=== PATIENT | male | born 1945 | race Caucasian/White ===

== ENCOUNTER → 2018-06-21 | Outpatient (CLI) | payer OTHER, BC | LOC: FIMAGING 06:44 | DX: H53.9 Unspecified visual disturbance (principal) ==

== ENCOUNTER → 2018-06-28 | Outpatient (CLI) | payer OTHER, BC ==
[~2018-06-28] MED LIST: GADOBUTROL 10 ML VIAL IVP ONE
== END ==
LOC: FIMAGING 08:09
DX: H53.9 Unspecified visual disturbance (principal)
CPT/HCPCS: 70553; A9585